=== PATIENT | male | born 1930 | race Asian ===

== ENCOUNTER 2017-08-25 17:11 | Inpatient (IN) | payer OTHER ==
--- NOTE | 2017-08-25 17:42 | EDPHY ---
H & P Time Seen by Provider: 08/25/17 17:40 HPI/ROS: CHIEF COMPLAINT: Shortness of breath HISTORY OF PRESENT ILLNESS: The patient is an anticoagulated 87 y/o male with hypertension and hyperlipidemia complaining of shortness of breath and left-sided chest pressure for 2 days. He returned from [place] 2 days ago. Onset of shortness of breath upon arrival to [place]. Gradually increasing shortness of breath since then. The shortness of breath is constant and aggravated with exertion. The chest pressure has been intermittent and is aggravated when he walks. This afternoon his symptoms worsened and he was short of breath at rest. He also noticed bilateral leg swelling. Denies fever, cough, receiving a flu shot this year, paresthesias or other pertinent symptoms. REVIEW OF SYSTEMS: Aside from elements discussed in the HPI, a comprehensive 10-point review of systems was reviewed and is negative. Past Medical/Surgical History: Hypertension, hypercholesteremia, atrial flutter, pace maker Social History: Son at bedside, , lives in [place], retired Smoking Status: Never smoked Physical Exam: General Appearance: Alert, O2Sat at triage: 89% Eyes: Pupils equal and round, no conjunctival pallor or injection ENT, Mouth: Mucous membranes moist Neck: Normal inspection Respiratory: Tachypnea, Lungs are clear to auscultation Cardiovascular: Regular rate and rhythm Gastrointestinal: Abdomen is soft and non-tender Neurological: A&O, nonfocal exam Skin: Warm and dry, no rash Extremities: Nontender, 1+ bilateral pitting edema Psychiatric: Mood and affect normal Constitutional: Initial Vital Signs Temperature (C) 36.7 C 08/25/17 17:17 Heart Rate 72 08/25/17 17:17 Respiratory Rate 22 H 08/25/17 17:17 Blood Pressure 193/78 H 08/25/17 17:17 O2 Sat (%) 94 08/25/17 17:17 O2 Delivery Mode Room Air O2 (L/minute) 2 Allergies/Adverse Reactions: No Known Allergies Allergy (Verified 08/25/17 17:16) Home Medications: Medication Instructions Recorded Atorvastatin Calcium [Lipitor 20 20 mg PO HS 11/30/14 mg (*)] Finasteride [Proscar 5 MG (*)] 5 mg PO HS 11/30/14 Apixaban [Eliquis] 2.5 mg PO BID 07/21/16 Zolpidem Tartrate [Ambien 10 mg] 10 mg PO HS 08/25/17 amLODIPine BESYLATE [Norvasc 2.5 2.5 mg PO DAILY 08/25/17 mg (*)] Furosemide [Lasix 20 MG (*)] 20 mg PO BID #60 tab 08/26/17 Medical Decision Making - Diagnostics EKG Interpretation: EKG interpreted by me reveals atrial fibrillation, normal axis, normal intervals , T-wave inversion inf-lateral leads, prolonged QT interval. Interpretation: atrial fibrillation Imaging Results: Chest x-ray independently reviewed by me revealed bilateral small pleural effusions Imaging: Discussed imaging studies w/ fisher scallop Radiologist, I viewed and interpreted images myself ED Course/Re-evaluation: The patient is an 87 y/o male presenting with shortness of breath and intermittent chest pressure. On exam he has diffuse breath sounds at his right base and 1+ bilateral pitting edema. At triage his O2Sats were at 89%, he was placed on room air and his O2Sats are now 98%. 174: EKG interpreted by me as atrial fibrillation with a controlled rate. Chest x-ray reveals mild pulmonary edema. Given hypoxia, significant shortness of breath, it's unclear whether his symptoms are secondary to CHF. I am concerned about pulmonary embolism, given recent prolonged travel, fairly unremarkable chest x-ray and hypoxia. For this reason, CT pulmonary angiogram ordered. 1808: Consulted with hospitalist service, Dr. Pappas accepts admission of this patient. 1814: Reassessed patient and discussed plan for admission. Patient and his son are comfortable with this plan. Patient was just up to the bathroom and he is quite dyspneic after getting back in bed, with oxygen saturation of 85% on room air. Oxygen was reapplied. CT pulmonary angiogram is negative for pulmonary embolism. Lasix 20 mg IV given for pulmonary edema. There is no evidence of acute coronary syndrome, pulmonary embolism, pneumonia. Differential Diagnosis: Differential diagnosis includes though it is not limited to pneumonia, pneumothorax, pulmonary embolism, aortic dissection, pericarditis, acute coronary syndrome. - Data Points Laboratory Results: Laboratory Results 08/25/17 17:40 08/25/17 17:40 Medications Given: Discontinued Medications Amlodipine Besylate (Norvasc) 2.5 mg PO DAILY [facility] Stop: 02/22/18 08:59 Last Admin: 08/26/17 09:37 Dose: 2.5 mg Apixaban (Eliquis) 2.5 mg PO BID [facility] Stop: 02/21/18 20:59 Last Admin: 08/26/17 09:37 Dose: 2.5 mg Atorvastatin Calcium (Lipitor) 20 mg PO HS [facility] Stop: 02/21/18 20:59 Last Admin: 08/25/17 21:47 Dose: 20 mg Finasteride (Proscar) 5 mg PO HS [facility] Stop: 02/21/18 20:59 Last Admin: 08/25/17 21:47 Dose: 5 mg Furosemide (Lasix Injection) 40 mg IVP EDNOW ONE Stop: 08/25/17 19:22 Last Admin: 08/25/17 19:33 Dose: 40 mg Furosemide (Lasix Injection) 40 mg IVP BID@0900,1500 [facility] Stop: 02/22/18 08:59 Last Admin: 08/26/17 16:01 Dose: 40 mg Influenza Virus Vaccine Quadrival (Fluarix Quad [id number]) 0.5 ml IM .ONCE ONE Stop: 08/26/17 14:21 Last Admin: 08/26/17 16:01 Dose: 0.5 ml Zolpidem Tartrate (Ambien) 10 mg PO HS [facility] Stop: 02/21/18 20:59 Last Admin: 08/25/17 21:47 Dose: 10 mg Departure - Departure Disposition: [facility] Inpatient Acute Clinical Impression: Hypoxia Pulmonary edema Qualifiers: Chronicity: acute Qualified Code(s): J81.0 - Acute pulmonary edema Condition: Fair Report Scribed for: Kaitlyn Taylor Report Scribed by: Amanda Pham Date of Report: 08/25/17 Time of Report: 17:41 Physician Review and Approval Statement: 08/25/17 17:42 Portions of this note were transcribed by a medical physiologist. I personally performed a history, physical exam, medical decision making, and confirmed accuracy of information the transcribed note.
--- NOTE | 2017-08-25 17:42 | EDPHY ---
H & P Time Seen by Provider: 08/25/17 17:40 HPI/ROS: CHIEF COMPLAINT: Shortness of breath HISTORY OF PRESENT ILLNESS: The patient is an anticoagulated 87 y/o male with hypertension and hyperlipidemia complaining of shortness of breath and left-sided chest pressure for 2 days. He returned from [place] 2 days ago. Onset of shortness of breath upon arrival to [place]. Gradually increasing shortness of breath since then. The shortness of breath is constant and aggravated with exertion. The chest pressure has been intermittent and is aggravated when he walks. This afternoon his symptoms worsened and he was short of breath at rest. He also noticed bilateral leg swelling. Denies fever, cough, receiving a flu shot this year, paresthesias or other pertinent symptoms. REVIEW OF SYSTEMS: Aside from elements discussed in the HPI, a comprehensive 10-point review of systems was reviewed and is negative. Past Medical/Surgical History: Hypertension, hypercholesteremia, atrial flutter, pace maker Social History: Son at bedside, , lives in [place], retired Smoking Status: Never smoked Physical Exam: General Appearance: Alert, O2Sat at triage: 89% Eyes: Pupils equal and round, no conjunctival pallor or injection ENT, Mouth: Mucous membranes moist Neck: Normal inspection Respiratory: Tachypnea, Lungs are clear to auscultation Cardiovascular: Regular rate and rhythm Gastrointestinal: Abdomen is soft and non-tender Neurological: A&O, nonfocal exam Skin: Warm and dry, no rash Extremities: Nontender, 1+ bilateral pitting edema Psychiatric: Mood and affect normal Constitutional: Initial Vital Signs Temperature (C) 36.7 C 08/25/17 17:17 Heart Rate 72 08/25/17 17:17 Respiratory Rate 22 H 08/25/17 17:17 Blood Pressure 193/78 H 08/25/17 17:17 O2 Sat (%) 94 08/25/17 17:17 O2 Delivery Mode Room Air O2 (L/minute) 2 Allergies/Adverse Reactions: No Known Allergies Allergy (Verified 08/25/17 17:16) Home Medications: Medication Instructions Recorded Atorvastatin Calcium [Lipitor 20 20 mg PO HS 11/30/14 mg (*)] Finasteride [Proscar 5 MG (*)] 5 mg PO HS 11/30/14 Apixaban [Eliquis] 2.5 mg PO BID 07/21/16 Zolpidem Tartrate [Ambien 10 mg] 10 mg PO HS 08/25/17 amLODIPine BESYLATE [Norvasc 2.5 2.5 mg PO DAILY 08/25/17 mg (*)] Furosemide [Lasix 20 MG (*)] 20 mg PO BID #60 tab 08/26/17 Medical Decision Making - Diagnostics EKG Interpretation: EKG interpreted by me reveals atrial fibrillation, normal axis, normal intervals , T-wave inversion inf-lateral leads, prolonged QT interval. Interpretation: atrial fibrillation Imaging Results: Chest x-ray independently reviewed by me revealed bilateral small pleural effusions Imaging: Discussed imaging studies w/ yard caller Radiologist, I viewed and interpreted images myself ED Course/Re-evaluation: The patient is an 87 y/o male presenting with shortness of breath and intermittent chest pressure. On exam he has diffuse breath sounds at his right base and 1+ bilateral pitting edema. At triage his O2Sats were at 89%, he was placed on room air and his O2Sats are now 98%. 174: EKG interpreted by me as atrial fibrillation with a controlled rate. Chest x-ray reveals mild pulmonary edema. Given hypoxia, significant shortness of breath, it's unclear whether his symptoms are secondary to CHF. I am concerned about pulmonary embolism, given recent prolonged travel, fairly unremarkable chest x-ray and hypoxia. For this reason, CT pulmonary angiogram ordered. 1808: Consulted with hospitalist service, Dr. Pappas accepts admission of this patient. 1814: Reassessed patient and discussed plan for admission. Patient and his son are comfortable with this plan. Patient was just up to the bathroom and he is quite dyspneic after getting back in bed, with oxygen saturation of 85% on room air. Oxygen was reapplied. CT pulmonary angiogram is negative for pulmonary embolism. Lasix 20 mg IV given for pulmonary edema. There is no evidence of acute coronary syndrome, pulmonary embolism, pneumonia. Differential Diagnosis: Differential diagnosis includes though it is not limited to pneumonia, pneumothorax, pulmonary embolism, aortic dissection, pericarditis, acute coronary syndrome. - Data Points Laboratory Results: Laboratory Results 08/25/17 17:40 08/25/17 17:40 Medications Given: Discontinued Medications Amlodipine Besylate (Norvasc) 2.5 mg PO DAILY [facility] Stop: 02/22/18 08:59 Last Admin: 08/26/17 09:37 Dose: 2.5 mg Apixaban (Eliquis) 2.5 mg PO BID [facility] Stop: 02/21/18 20:59 Last Admin: 08/26/17 09:37 Dose: 2.5 mg Atorvastatin Calcium (Lipitor) 20 mg PO HS [facility] Stop: 02/21/18 20:59 Last Admin: 08/25/17 21:47 Dose: 20 mg Finasteride (Proscar) 5 mg PO HS [facility] Stop: 02/21/18 20:59 Last Admin: 08/25/17 21:47 Dose: 5 mg Furosemide (Lasix Injection) 40 mg IVP EDNOW ONE Stop: 08/25/17 19:22 Last Admin: 08/25/17 19:33 Dose: 40 mg Furosemide (Lasix Injection) 40 mg IVP BID@0900,1500 [facility] Stop: 02/22/18 08:59 Last Admin: 08/26/17 16:01 Dose: 40 mg Influenza Virus Vaccine Quadrival (Fluarix Quad [id number]) 0.5 ml IM .ONCE ONE Stop: 08/26/17 14:21 Last Admin: 08/26/17 16:01 Dose: 0.5 ml Zolpidem Tartrate (Ambien) 10 mg PO HS [facility] Stop: 02/21/18 20:59 Last Admin: 08/25/17 21:47 Dose: 10 mg Departure - Departure Disposition: [facility] In[facility] Acute Clinical Impression: Hypoxia Pulmonary edema Qualifiers: Chronicity: acute Qualified Code(s): J81.0 - Acute pulmonary edema Condition: Fair Report Scribed for: Kaitlyn Taylor Report Scribed by: Amanda Pham Date of Report: 08/25/17 Time of Report: 17:41 Physician Review and Approval Statement: 08/25/17 17:42 Portions of this note were transcribed by a biomedical engineering aide. I personally performed a history, physical exam, medical decision making, and confirmed accuracy of information the transcribed note.
--- NOTE | 2017-08-25 17:42 | EDPHY ---
H & P Time Seen by Provider: 08/25/17 17:40 HPI/ROS: CHIEF COMPLAINT: Shortness of breath HISTORY OF PRESENT ILLNESS: The patient is an anticoagulated 87 y/o male with hypertension and hyperlipidemia complaining of shortness of breath and left-sided chest pressure for 2 days. He returned from [place] 2 days ago. Onset of shortness of breath upon arrival to [place]. Gradually increasing shortness of breath since then. The shortness of breath is constant and aggravated with exertion. The chest pressure has been intermittent and is aggravated when he walks. This afternoon his symptoms worsened and he was short of breath at rest. He also noticed bilateral leg swelling. Denies fever, cough, receiving a flu shot this year, paresthesias or other pertinent symptoms. REVIEW OF SYSTEMS: Aside from elements discussed in the HPI, a comprehensive 10-point review of systems was reviewed and is negative. Past Medical/Surgical History: Hypertension, hypercholesteremia, atrial flutter, pace maker Social History: Son at bedside, , lives in [place], retired Smoking Status: Never smoked Physical Exam: General Appearance: Alert, O2Sat at triage: 89% Eyes: Pupils equal and round, no conjunctival pallor or injection ENT, Mouth: Mucous membranes moist Neck: Normal inspection Respiratory: Tachypnea, Lungs are clear to auscultation Cardiovascular: Regular rate and rhythm Gastrointestinal: Abdomen is soft and non-tender Neurological: A&O, nonfocal exam Skin: Warm and dry, no rash Extremities: Nontender, 1+ bilateral pitting edema Psychiatric: Mood and affect normal Constitutional: Initial Vital Signs Temperature (C) 36.7 C 08/25/17 17:17 Heart Rate 72 08/25/17 17:17 Respiratory Rate 22 H 08/25/17 17:17 Blood Pressure 193/78 H 08/25/17 17:17 O2 Sat (%) 94 08/25/17 17:17 O2 Delivery Mode Room Air O2 (L/minute) 2 Allergies/Adverse Reactions: No Known Allergies Allergy (Verified 08/25/17 17:16) Home Medications: Medication Instructions Recorded Atorvastatin Calcium [Lipitor 20 20 mg PO HS 11/30/14 mg (*)] Finasteride [Proscar 5 MG (*)] 5 mg PO HS 11/30/14 Apixaban [Eliquis] 2.5 mg PO BID 07/21/16 Zolpidem Tartrate [Ambien 10 mg] 10 mg PO HS 08/25/17 amLODIPine BESYLATE [Norvasc 2.5 2.5 mg PO DAILY 08/25/17 mg (*)] Furosemide [Lasix 20 MG (*)] 20 mg PO BID #60 tab 08/26/17 Medical Decision Making - Diagnostics EKG Interpretation: EKG interpreted by me reveals atrial fibrillation, normal axis, normal intervals , T-wave inversion inf-lateral leads, prolonged QT interval. Interpretation: atrial fibrillation Imaging Results: Chest x-ray independently reviewed by me revealed bilateral small pleural effusions Imaging: Discussed imaging studies w/ call person Radiologist, I viewed and interpreted images myself ED Course/Re-evaluation: The patient is an 87 y/o male presenting with shortness of breath and intermittent chest pressure. On exam he has diffuse breath sounds at his right base and 1+ bilateral pitting edema. At triage his O2Sats were at 89%, he was placed on room air and his O2Sats are now 98%. 174: EKG interpreted by me as atrial fibrillation with a controlled rate. Chest x-ray reveals mild pulmonary edema. Given hypoxia, significant shortness of breath, it's unclear whether his symptoms are secondary to CHF. I am concerned about pulmonary embolism, given recent prolonged travel, fairly unremarkable chest x-ray and hypoxia. For this reason, CT pulmonary angiogram ordered. 1808: Consulted with hospitalist service, Dr. Pappas accepts admission of this patient. 1814: Reassessed patient and discussed plan for admission. Patient and his son are comfortable with this plan. Patient was just up to the bathroom and he is quite dyspneic after getting back in bed, with oxygen saturation of 85% on room air. Oxygen was reapplied. CT pulmonary angiogram is negative for pulmonary embolism. Lasix 20 mg IV given for pulmonary edema. There is no evidence of acute coronary syndrome, pulmonary embolism, pneumonia. Differential Diagnosis: Differential diagnosis includes though it is not limited to pneumonia, pneumothorax, pulmonary embolism, aortic dissection, pericarditis, acute coronary syndrome. - Data Points Laboratory Results: Laboratory Results 08/25/17 17:40 08/25/17 17:40 Medications Given: Discontinued Medications Amlodipine Besylate (Norvasc) 2.5 mg PO DAILY [facility] Stop: 02/22/18 08:59 Last Admin: 08/26/17 09:37 Dose: 2.5 mg Apixaban (Eliquis) 2.5 mg PO BID [facility] Stop: 02/21/18 20:59 Last Admin: 08/26/17 09:37 Dose: 2.5 mg Atorvastatin Calcium (Lipitor) 20 mg PO HS [facility] Stop: 02/21/18 20:59 Last Admin: 08/25/17 21:47 Dose: 20 mg Finasteride (Proscar) 5 mg PO HS [facility] Stop: 02/21/18 20:59 Last Admin: 08/25/17 21:47 Dose: 5 mg Furosemide (Lasix Injection) 40 mg IVP EDNOW ONE Stop: 08/25/17 19:22 Last Admin: 08/25/17 19:33 Dose: 40 mg Furosemide (Lasix Injection) 40 mg IVP BID@0900,1500 [facility] Stop: 02/22/18 08:59 Last Admin: 08/26/17 16:01 Dose: 40 mg Influenza Virus Vaccine Quadrival (Fluarix Quad [id number]) 0.5 ml IM .ONCE ONE Stop: 08/26/17 14:21 Last Admin: 08/26/17 16:01 Dose: 0.5 ml Zolpidem Tartrate (Ambien) 10 mg PO HS [facility] Stop: 02/21/18 20:59 Last Admin: 08/25/17 21:47 Dose: 10 mg Departure - Departure Disposition: [facility] In[facility] Acute Clinical Impression: Hypoxia Pulmonary edema Qualifiers: Chronicity: acute Qualified Code(s): J81.0 - Acute pulmonary edema Condition: Fair Report Scribed for: Kaitlyn Taylor Report Scribed by: Amanda Pham Date of Report: 08/25/17 Time of Report: 17:41 Physician Review and Approval Statement: 08/25/17 17:42 Portions of this note were transcribed by a medical laboratory scientist. I personally performed a history, physical exam, medical decision making, and confirmed accuracy of information the transcribed note.
--- NOTE | 2017-08-25 17:50 | CPEKG ---
Heart Rate: 66 RR Interval: 909 QRSD Interval: 84 QT Interval: 480 QTC Interval: 503 QRS [place]: 125 T Wave [place]: 255 EKG Severity - ABNORMAL ECG - EKG Impression: ATRIAL FIBRILLATION EKG Impression: PVC EKG Impression: RIGHT AXIS DEVIATION EKG Impression: ABNORMAL T, CONSIDER ISCHEMIA, DIFFUSE LEADS EKG Impression: PROLONGED QT INTERVAL Electronically Signed By: Kaitlyn Taylor 25-Aug-2017 21:31:16
[2017-08-25 18:06] LABS: PLATELET COUNT 151 10^3/uL (150-400)
[2017-08-25] MEDS ORDERED: IOPAMIDOL (ISOVUE 370) 100 ML BTL IV ONE (18:29)
[2017-08-25] MEDS ORDERED: ONDANSETRON DISINTEGRATING 4 MG TAB PO PRN (19:11)
[2017-08-25] MEDS ORDERED: ONDANSETRON 4 MG/2 ML VIAL IVP PRN (19:11)
[2017-08-25] MEDS ORDERED: ACETAMINOPHEN 325 MG TAB PO PRN (19:11)
[2017-08-25] MEDS ORDERED: FUROSEMIDE 40 MG/4 ML VIAL IVP ONE (19:21)
--- NOTE | 2017-08-25 20:47 | GHP ---
[f rep st] HISTORY AND PHYSICAL DATE OF ADMISSION: 08/25/2017 CHIEF COMPLAINT: Shortness of breath. State Wildlife Officer: Dr. Mason HISTORY OF PRESENT ILLNESS: History obtained with a [place] phone park interpreter and son. A 87-year-old male with a history of ROSITA, noncompliant with CPAP, severe tricuspid regurgitation, presenting with shortness of breath. Had sudden onset of dyspnea a couple days ago after returning from [place] a few days ago. It is worse with walking. No chest pain. c/o leg swelling for 3 months and fullness in abdomen. Denies pillow orthopnea. He cannot confirm PND; says always has a hard time sleeping and wakes up often. No fevers, chills or sweats. No nausea, vomiting or diarrhea. REVIEW OF SYSTEMS: I completed a 10-point review of systems, negative except as noted in HPI. PAST MEDICAL HISTORY: 1. Severe TR on echocardiogram in 2014 with normal LV of 65%. RV was mildly dilated. 2. Atrial flutter. 3. Bradycardia, status post pacemaker in 2015. 4. ROSITA, noncompliant with CPAP. 5. BPH. 6. Depression. 7. Diabetes, not on medications. 8. Elevated PSA. 9. Hyperlipidemia, hypertension. 10. Right adrenal adenoma. 11. Insomnia. PAST SURGICAL HISTORY: 1. Pacemaker. 2. Adrenal gland resection. SOCIAL HISTORY: Lives with his son in [place]. No tobacco, alcohol or illicits. Does not use a cane or walker. Does not fall. ALLERGIES: No known drug allergies. HOME MEDICATIONS: Norvasc 2.5 mg daily, Ambien 10 mg q.h.s., Eliquis 2.5 mg b.i.d., finasteride 5 mg q.h.s., atorvastatin 20 mg q.h.s. PHYSICAL EXAMINATION: VITAL SIGNS: Temperature 36.7, blood pressure 193/78, heart rate 72, respirations 22, 94% on room air. GENERAL: Elderly male lying in bed. No acute distress. HEENT: PERRLA. EOMI. Oropharynx clear. CV: Regular rate and rhythm. No murmurs, gallops or rubs. +2 lower extremity edema to the knees. LUNGS: Decreased breath sounds at both bases, right greater than left. ABDOMEN: Distended, firm but no tenderness to palpation. Positive bowel sounds. : No Serna. MUSCULOCUTANEOUS/MUSCULOSKELETAL: 5/5 upper and lower extremity strength. NEUROLOGIC: 2-12 intact. PSYCH: Alert and oriented x3. DIAGNOSTIC STUDIES: Chest x-ray was personally reviewed by me. Bilateral pleural effusions, right greater than left. No opacity. Pacemaker lead in right ventricle. CTA: No PE. Borderline CHF with small amount of right and left pleural effusions. Minimal interstitial lung disease. EKG was personally reviewed by me. AFib. QTc 503. ST flattening anterior leads, T-wave inversions in II, III and aVF, seen on prior EKG. ASSESSMENT AND PLAN: 1. Shortness of breath: effusions on imaging. Suspect right heart failure with untreated ROSITA. No e/o infection, no PE. Check echo in morning. IV diuresis, I/O , fluid restriction, loqw-Na diet. 2. Obstructive sleep apnea. CPAP. Diuresis as above. 3. Insomnia. Continue Ambien. 4. Hypertension. Amlodipine. 5. Benign prostatic hypertrophy. Proscar. 6. Hyperlipidemia. Statin. 7. History of atrial flutter. Continue Eliquis. 8. h/o bradycardia: pacemakeer 9. Diet: Low sodium. 2 L fluid restriction. 10. Deep venous thrombosis prophylaxis, on Eliquis. DISPOSITION: Patient warrants observation admission with pleural effusion requiring IV Lasix. He does not want to stay in hospital; says he will leave tomorrow though I advised him to stay for diuresis. /[id number]/MODL MTDD
[2017-08-25] MEDS ORDERED: ATORVASTATIN CALCIUM 20 MG TAB PO SCH (21:00)
[2017-08-25] MEDS ORDERED: FINASTERIDE 5 MG TAB PO SCH (21:00)
[2017-08-25] MEDS ORDERED: ZOLPIDEM TARTRATE 5 MG TAB PO SCH (21:00)
[2017-08-25] MEDS: APIXABAN 2.5 MG TAB PO SCH (21:47)
[2017-08-26] MEDS: APIXABAN 2.5 MG TAB PO SCH (09:37)
[2017-08-26] MEDS: FUROSEMIDE 40 MG/4 ML VIAL IVP SCH ×2 (09:37→16:01)
--- NOTE | 2017-08-26 11:38 | PDMN ---
Medical Necessity Medical necessity: Pt meets IP criteria per MD; est los >2 mn for evel/tx of pleural effusion & suspected R sided heart failure w/untreated ROSITA; admit for IV diuresis; hx aflutter, htn, diabetes; per H&P & order 08/25/17
[2017-08-26 12:19] VITALS: BP 149/59; PULSE 61; RESP 20; TEMP 98.2; O2SAT 97
[2017-08-26] MEDS ORDERED: FLU VACC QS 2017-18 (3YR+)/PF 0.5 ML SYR (FLUARIX QUAD) IM ONE (14:20)
--- NOTE | 2017-08-26 15:07 | PDHOMEO2F ---
Home Oxygen Face to Face Home Orders: I certify that a physician or a nurse practitioner or physician's family and divorce legal assistant has had a [id number] encounter with this patient on the date of this order due to the diagnosis listed, which relates to the primary reason the patient requires home oxygen. Alternative treatments have been tried, or considered, and deemed ineffective. It is anticipated that supplemental oxygen will result in improvement with treatment. Home oxygen qualifying diagnosis: diastolic heart failure SpO2 on room air (%): 82% on RA ambulating Frequency of home oxygen needed: continuous Home oxygen liters per minute: 2L Home oxygen delivery device: nasal cannula Concentrator: Yes E-tanks for mobility and back up: Yes If ordering portable O2, is the patient mobile in the home?: Yes I certify that, based on these findings, the home oxygen is medically necessary for this patient for the following length of time. Length of time home oxygen needed: 1 month
--- NOTE | 2017-08-26 15:07 | PDHOMEO2F ---
Home Oxygen Face to Face Home Orders: I certify that a physician or a nurse practitioner or physician's child development assistant has had a [id number] encounter with this patient on the date of this order due to the diagnosis listed, which relates to the primary reason the patient requires home oxygen. Alternative treatments have been tried, or considered, and deemed ineffective. It is anticipated that supplemental oxygen will result in improvement with treatment. Home oxygen qualifying diagnosis: diastolic heart failure SpO2 on room air (%): 82% on RA ambulating Frequency of home oxygen needed: continuous Home oxygen liters per minute: 2L Home oxygen delivery device: nasal cannula Concentrator: Yes E-tanks for mobility and back up: Yes If ordering portable O2, is the patient mobile in the home?: Yes I certify that, based on these findings, the home oxygen is medically necessary for this patient for the following length of time. Length of time home oxygen needed: 1 month
--- NOTE | 2017-08-26 15:07 | PDHOMEO2F ---
Home Oxygen Face to Face Home Orders: I certify that a physician or a nurse practitioner or physician's assistant statistician has had a [id number] encounter with this patient on the date of this order due to the diagnosis listed, which relates to the primary reason the patient requires home oxygen. Alternative treatments have been tried, or considered, and deemed ineffective. It is anticipated that supplemental oxygen will result in improvement with treatment. Home oxygen qualifying diagnosis: diastolic heart failure SpO2 on room air (%): 82% on RA ambulating Frequency of home oxygen needed: continuous Home oxygen liters per minute: 2L Home oxygen delivery device: nasal cannula Concentrator: Yes E-tanks for mobility and back up: Yes If ordering portable O2, is the patient mobile in the home?: Yes I certify that, based on these findings, the home oxygen is medically necessary for this patient for the following length of time. Length of time home oxygen needed: 1 month
--- NOTE | 2017-08-26 16:31 | ECHO ---
[email or web address] [address] [address] Main: [phone] Fax: Transthoracic Echocardiogram Name: LV SALAZAR MR#: [id number] Study Date: 08/26/2017 Study Time: 08:02 AM Date of : 1930 Age: 87 year(s) Height: 165.1 cm (65 in.) Weight: 72.58 kg (160 lb.) BSA: 1.8 m2 Gender: Male Examination: Echo Indication: Acute Dyspnea, Pacemaker Image Quality: Contrast: Requested by: Lisset Pappas BP: 171 mmHg/85 mmHg Heart Rate: Rhythm: Pacemaker rhythm Indication: Acute Dyspnea, Pacemaker Procedure Staff Plan Rep: Caesar Hansen Reading Physician: Kayode Frederick Requesting Provider: Conclusions: Normal size left ventricle. Global hypercontractility of the left ventricle. EF is 73 %. Severely dilated right ventricle. The left atrium is moderately dilated. The right atrium is mildly to moderately dilated. The mitral valve is normal in appearance and function. The aortic valve is tri-leaflet. Mild aortic valve regurgitation is present. The pulmonary artery pressure is severely increased. The pulmonary artery pressure estimate is 66 mmHg. When compared to the 11/30/14 study. The pulmonary artery pressure has increased from 35 to 66 mmHg. Measurements: Chambers Valvular Assessment AV/MV Valvular Assessment TV/PV Normal Normal Normal Name Value Range Name Value Range Name Value Range Ao Lara (MM): 2.7 cm (2.2 cm-3.7 AV Vmax: 1.66 m/s (1 m/s-1.7 TR Vmax: 3.74 mm/s ( - ) cm) m/s) TR PGmax: 56 mmHg ( - ) IVSd (2D): 0.9 cm (0.6 cm-1.1 AV maxP mmHg ( - ) syst. PAP: 66 mmHg ( - ) cm) LVOT Vmax: 1.06 m/s (0.7 m/s-1.1 PV Vmax: 1.11 m/s (0.6 m/s-0.9 LVDd (2D): 4.9 cm (4.2 cm-5.9 m/s) m/s) cm) MV E Vmax: 1.16 m/s ( - ) PV PGmax: 5 mmHg ( - ) LVDs (2D): 2.8 cm (2.1 cm-4 cm) LVPWd (2D): 1.0 cm (0.6 cm-1 cm) LVEF (2D): 73 (>=54 %) Patient: LV SALAZAR Study Date: 08/26/2017 Page 1 of 2 08:02 AM RVDd(2D): 3.5 cm (1.9 cm-3.8 cmmm) Continued Measurements: Chambers Valvular Assessment AV/MV Valvular Assessment TV/PV Name Value Name Value Name Value LADs Lon.6 cm MV E/E' Septal: 12.90 CVP (est.): 10 mmHg LA Area: 27.2 cm2 MV E/E' Lateral: 14.30 Findings: Left Ventricle: Normal size left ventricle. No LV hypertrophy. Global hypercontractility of the left ventricle. EF is 73 %. No regional wall motion abnormality. Diastolic dysfunction is present. . Right Ventricle: Severely dilated right ventricle. Normal RV function. There is a pacemaker lead noted in the right ventricle. Left Atrium: The left atrium is moderately dilated. Right Atrium: The right atrium is mildly to moderately dilated. Mitral Valve: The mitral valve is normal in appearance and function. Trivial to mild mitral regurgitation. Aortic Valve: The aortic valve is normal in appearance and function. The aortic valve is tri-leaflet. Mild aortic valve regurgitation is present. Tricuspid Valve: The tricuspid valve appears normal. Severe tricuspid regurgitation is present. The pulmonary artery pressure is severely increased. Pulmonic Valve: The pulmonic valve is normal in appearance and function. Mild pulmonic valve regurgitation is noted. Aorta: The aorta is normal. Pericardium: No pericardial effusion. (No Signature Object) Patient: LV SALAZAR Study Date: 08/26/2017 Page 2 of 2 08:02 AM [id number]
--- NOTE | 2017-08-26 16:31 | ECHO ---
[email or web address] [address] [address] Main: [phone] Fax: Transthoracic Echocardiogram Name: LV SALAZAR MR#: [id number] Study Date: 08/26/2017 Study Time: 08:02 AM Date of : 1930 Age: 87 year(s) Height: 165.1 cm (65 in.) Weight: 72.58 kg (160 lb.) BSA: 1.8 m2 Gender: Male Examination: Echo Indication: Acute Dyspnea, Pacemaker Image Quality: Contrast: Requested by: Lisset Pappas BP: 171 mmHg/85 mmHg Heart Rate: Rhythm: Pacemaker rhythm Indication: Acute Dyspnea, Pacemaker Procedure Staff Ring Making Machine Operator: Caesar Hansen Reading Physician: Kayode Frederick Requesting Provider: Conclusions: Normal size left ventricle. Global hypercontractility of the left ventricle. EF is 73 %. Severely dilated right ventricle. The left atrium is moderately dilated. The right atrium is mildly to moderately dilated. The mitral valve is normal in appearance and function. The aortic valve is tri-leaflet. Mild aortic valve regurgitation is present. The pulmonary artery pressure is severely increased. The pulmonary artery pressure estimate is 66 mmHg. When compared to the 11/30/14 study. The pulmonary artery pressure has increased from 35 to 66 mmHg. Measurements: Chambers Valvular Assessment AV/MV Valvular Assessment TV/PV Normal Normal Normal Name Value Range Name Value Range Name Value Range Ao Lara (MM): 2.7 cm (2.2 cm-3.7 AV Vmax: 1.66 m/s (1 m/s-1.7 TR Vmax: 3.74 mm/s ( - ) cm) m/s) TR PGmax: 56 mmHg ( - ) IVSd (2D): 0.9 cm (0.6 cm-1.1 AV maxP mmHg ( - ) syst. PAP: 66 mmHg ( - ) cm) LVOT Vmax: 1.06 m/s (0.7 m/s-1.1 PV Vmax: 1.11 m/s (0.6 m/s-0.9 LVDd (2D): 4.9 cm (4.2 cm-5.9 m/s) m/s) cm) MV E Vmax: 1.16 m/s ( - ) PV PGmax: 5 mmHg ( - ) LVDs (2D): 2.8 cm (2.1 cm-4 cm) LVPWd (2D): 1.0 cm (0.6 cm-1 cm) LVEF (2D): 73 (>=54 %) Patient: LV SALAZAR Study Date: 08/26/2017 Page 1 of 2 08:02 AM RVDd(2D): 3.5 cm (1.9 cm-3.8 cmmm) Continued Measurements: Chambers Valvular Assessment AV/MV Valvular Assessment TV/PV Name Value Name Value Name Value LADs Lon.6 cm MV E/E' Septal: 12.90 CVP (est.): 10 mmHg LA Area: 27.2 cm2 MV E/E' Lateral: 14.30 Findings: Left Ventricle: Normal size left ventricle. No LV hypertrophy. Global hypercontractility of the left ventricle. EF is 73 %. No regional wall motion abnormality. Diastolic dysfunction is present. . Right Ventricle: Severely dilated right ventricle. Normal RV function. There is a pacemaker lead noted in the right ventricle. Left Atrium: The left atrium is moderately dilated. Right Atrium: The right atrium is mildly to moderately dilated. Mitral Valve: The mitral valve is normal in appearance and function. Trivial to mild mitral regurgitation. Aortic Valve: The aortic valve is normal in appearance and function. The aortic valve is tri-leaflet. Mild aortic valve regurgitation is present. Tricuspid Valve: The tricuspid valve appears normal. Severe tricuspid regurgitation is present. The pulmonary artery pressure is severely increased. Pulmonic Valve: The pulmonic valve is normal in appearance and function. Mild pulmonic valve regurgitation is noted. Aorta: The aorta is normal. Pericardium: No pericardial effusion. (No Signature Object) Patient: LV SALAZAR Study Date: 08/26/2017 Page 2 of 2 08:02 AM [id number]
--- NOTE | 2017-08-26 16:31 | ECHO ---
[email or web address] [address] [address] Main: [phone] Fax: Transthoracic Echocardiogram Name: LV SALAZAR MR#: [id number] Study Date: 08/26/2017 Study Time: 08:02 AM Date of : 1930 Age: 87 year(s) Height: 165.1 cm (65 in.) Weight: 72.58 kg (160 lb.) BSA: 1.8 m2 Gender: Male Examination: Echo Indication: Acute Dyspnea, Pacemaker Image Quality: Contrast: Requested by: Lisset Pappas BP: 171 mmHg/85 mmHg Heart Rate: Rhythm: Pacemaker rhythm Indication: Acute Dyspnea, Pacemaker Procedure Staff Ep Specialist: Caesar Hansen Reading Physician: Kayode Frederick Requesting Provider: Conclusions: Normal size left ventricle. Global hypercontractility of the left ventricle. EF is 73 %. Severely dilated right ventricle. The left atrium is moderately dilated. The right atrium is mildly to moderately dilated. The mitral valve is normal in appearance and function. The aortic valve is tri-leaflet. Mild aortic valve regurgitation is present. The pulmonary artery pressure is severely increased. The pulmonary artery pressure estimate is 66 mmHg. When compared to the 11/30/14 study. The pulmonary artery pressure has increased from 35 to 66 mmHg. Measurements: Chambers Valvular Assessment AV/MV Valvular Assessment TV/PV Normal Normal Normal Name Value Range Name Value Range Name Value Range Ao Lara (MM): 2.7 cm (2.2 cm-3.7 AV Vmax: 1.66 m/s (1 m/s-1.7 TR Vmax: 3.74 mm/s ( - ) cm) m/s) TR PGmax: 56 mmHg ( - ) IVSd (2D): 0.9 cm (0.6 cm-1.1 AV maxP mmHg ( - ) syst. PAP: 66 mmHg ( - ) cm) LVOT Vmax: 1.06 m/s (0.7 m/s-1.1 PV Vmax: 1.11 m/s (0.6 m/s-0.9 LVDd (2D): 4.9 cm (4.2 cm-5.9 m/s) m/s) cm) MV E Vmax: 1.16 m/s ( - ) PV PGmax: 5 mmHg ( - ) LVDs (2D): 2.8 cm (2.1 cm-4 cm) LVPWd (2D): 1.0 cm (0.6 cm-1 cm) LVEF (2D): 73 (>=54 %) Patient: LV SALAZAR Study Date: 08/26/2017 Page 1 of 2 08:02 AM RVDd(2D): 3.5 cm (1.9 cm-3.8 cmmm) Continued Measurements: Chambers Valvular Assessment AV/MV Valvular Assessment TV/PV Name Value Name Value Name Value LADs Lon.6 cm MV E/E' Septal: 12.90 CVP (est.): 10 mmHg LA Area: 27.2 cm2 MV E/E' Lateral: 14.30 Findings: Left Ventricle: Normal size left ventricle. No LV hypertrophy. Global hypercontractility of the left ventricle. EF is 73 %. No regional wall motion abnormality. Diastolic dysfunction is present. . Right Ventricle: Severely dilated right ventricle. Normal RV function. There is a pacemaker lead noted in the right ventricle. Left Atrium: The left atrium is moderately dilated. Right Atrium: The right atrium is mildly to moderately dilated. Mitral Valve: The mitral valve is normal in appearance and function. Trivial to mild mitral regurgitation. Aortic Valve: The aortic valve is normal in appearance and function. The aortic valve is tri-leaflet. Mild aortic valve regurgitation is present. Tricuspid Valve: The tricuspid valve appears normal. Severe tricuspid regurgitation is present. The pulmonary artery pressure is severely increased. Pulmonic Valve: The pulmonic valve is normal in appearance and function. Mild pulmonic valve regurgitation is noted. Aorta: The aorta is normal. Pericardium: No pericardial effusion. (No Signature Object) Patient: LV SALAZAR Study Date: 08/26/2017 Page 2 of 2 08:02 AM [id number]
--- NOTE | 2017-08-26 17:16 | GDS ---
[f rep st] DISCHARGE SUMMARY DISCHARGE DIAGNOSES: 1. Acute diastolic heart failure. 2. Acute hypoxic respiratory failure presumed secondary to diastolic heart failure. 3. Severe tricuspid regurgitation, known, chronic. 4. History of atrial flutter. 5. Obstructive sleep apnea, noncompliant with CPAP. 6. Benign prostatic hypertrophy. 7. Depression. 8. Diabetes. 9. Hyperlipidemia. HISTORY OF PRESENT ILLNESS: An 87-year-old male, who presents with complaints of shortness of breath . For details of the patient's initial presentation, please see the history and physical dated 08/26. CONSULTATIVE SERVICES: None. PROCEDURES: On 08/25/2017, patient had a CTA of the chest that showed no PE, borderline CHF with ass ociated small to moderate right and left effusions, and minimal interstitial lung disease unchanged f rom previous studies. HOSPITAL COURSE: Acute hypoxic respiratory failure. Patient looked to have pulmonary edema and effu sions consistent with diastolic heart failure. He was initiated on IV Lasix and had good therapeutic response. On the day of disposition, echocardiogram had been performed, but not interpreted. He wa s saturating 88% to 90% on room air at rest, and desaturates still to the low 80s on ambulation. We have discussed the treatment of diastolic heart failure with his outpatient director intelligence analysis programs, Dr. Mac. We are continuing his home cardiac medications with the addition of Lasix [address] Maria Guadalupe Mac will follow the final results of the echo which are pending at this time of discharge, and sabine l titrate medications as appropriate in the clinic in the next week or two. MEDICATIONS AT THE TIME OF TRANSFER: Please reference med rec printed on 08/26/2017. PENDING STUDIES: Transthoracic echocardiogram to be interpreted and followed up on by Dr. Mac. I spent greater than 30 minutes in the planning and coordination of this discharge. /[id number]/MODL
--- NOTE | 2017-08-27 16:51 | ASDISCHSUM ---
Discharge Information Plan Status:Home with No Needs Medically Cleared to Leave:08/25/2017 Discharge Date:08/26/2017 05:49 PM CM D/C Disposition: ADT D/C Disposition:Home, Routine, Self-Care Projected Discharge Date:08/26/2017 12:00 AM Transportation at D/C: Discharge Delay Reason: Follow-Up Date:08/26/2017 12:00 AM Discharge Slot: Final Diagnosis: Placement Information Patient Contact Information Contact Name:FRANKLIN Relationship:Son Address:[address] [place], [place] [address] City:[place] Alternate Phone: [facility]/Zip Code:[place] [address] Email: Financial Information Financial Class: Primary Plan Desc:MEDICARE INPATIENT Primary Plan Number:[id number] Secondary Plan Desc:[employer] Secondary Plan Number:[id number] Assessment Information Intervention Information
--- NOTE | 2017-08-27 16:51 | ASDISCHSUM ---
Discharge Information Plan Status:Home with No Needs Medically Cleared to Leave:08/25/2017 Discharge Date:08/26/2017 05:49 PM CM D/C Disposition: ADT D/C Disposition:Home, Routine, Self-Care Projected Discharge Date:08/26/2017 12:00 AM Transportation at D/C: Discharge Delay Reason: Follow-Up Date:08/26/2017 12:00 AM Discharge Slot: Final Diagnosis: Placement Information Patient Contact Information Contact Name:FRANKLIN Relationship:Son Address:[address] [place], [place] [address] City:[place] Alternate Phone: [facility]/Zip Code:[place] [address] Email: Financial Information Financial Class: Primary Plan Desc:MEDICARE INPATIENT Primary Plan Number:[id number] Secondary Plan Desc:[employer] Secondary Plan Number:[id number] Assessment Information Intervention Information
--- NOTE | 2017-08-27 16:51 | ASDISCHSUM ---
Discharge Information Plan Status:Home with No Needs Medically Cleared to Leave:08/25/2017 Discharge Date:08/26/2017 05:49 PM CM D/C Disposition: ADT D/C Disposition:Home, Routine, Self-Care Projected Discharge Date:08/26/2017 12:00 AM Transportation at D/C: Discharge Delay Reason: Follow-Up Date:08/26/2017 12:00 AM Discharge Slot: Final Diagnosis: Placement Information Patient Contact Information Contact Name:FRANKLIN Relationship:Son Address:[address] [place], [place] [address] City:[place] Alternate Phone: [facility]/Zip Code:[place] [address] Email: Financial Information Financial Class: Primary Plan Desc:MEDICARE INPATIENT Primary Plan Number:[id number] Secondary Plan Desc:[employer] Secondary Plan Number:[id number] Assessment Information Intervention Information
== END 2017-08-26 17:49 | disposition home or self-care (01) | DRG 291 ==
LOC: F3E 20:15 → F2W 20:51
PROVIDERS: ADMIT Internal Medicine; ATTEND Internal Medicine
DX: I50.31 Acute diastolic (congestive) heart failure (principal); J96.01 Acute respiratory failure with hypoxia; G47.33 Obstructive sleep apnea (adult) (pediatric); I07.1 Rheumatic tricuspid insufficiency; N40.0 Benign prostatic hyperplasia without lower urinary tract symptoms; F32.9 Major depressive disorder, single episode, unspecified; E11.9 Type 2 diabetes mellitus without complications; E78.5 Hyperlipidemia, unspecified; G47.00 Insomnia, unspecified; Z95.0 Presence of cardiac pacemaker; Z23 Encounter for immunization; Z79.01 Long term (current) use of anticoagulants
CPT/HCPCS: G0008; J1940; Q9967

== ENCOUNTER → 2017-12-22 | Outpatient (CLI) | payer OTHER | LOC: FIMAGING 09:08 | PROVIDERS: ATTEND Family Medicine | DX: E04.1 Nontoxic single thyroid nodule (principal); E11.9 Type 2 diabetes mellitus without complications; I25.10 Atherosclerotic heart disease of native coronary artery without angina pectoris; R94.6 Abnormal results of thyroid function studies ==

== ENCOUNTER 2018-08-13 22:20 | Emergency (ER) | payer OTHER ==
[2018-08-13] MEDS ORDERED: OXYMETAZOLINE 30 ML NASAL SPRAY EACHNARE ONE (22:33)
[2018-08-13] MEDS ORDERED: TRANEXAMIC ACID 1,000 MG/10 ML VIAL TP ONE (22:33)
--- NOTE | 2018-08-13 22:52 | EDPHY ---
H & P Stated Complaint: L nose bleed half hour ago-on Eliquis for AFlutter. Time Seen by Provider: 08/13/18 22:33 HPI/ROS: HPI The patient presents with epistaxis which began about 1 hr prior to arrival in the emergency department. The patient states he was picking his left naris and then noticed blood. This continued and was dripping for several minutes. He was unable to control it with pressure. He is on Eliquis for atrial flutter. He has no prior history of nose bleed.. REVIEW OF SYSTEMS 10 systems were reviewed and negative with the exception of the elements mentioned in the history of present illness. PMHx: Hypertension, pacemaker in place, atrial flutter on Eliquis, BPH Soc Hx: Here with his son PHYSICAL General Appearance: Alert, no distress Eyes: Pupils equal and round no pallor or injection ENT, Mouth: Left naris with small amount of active bleeding, no obvious source of bleeding identified, Mucous membranes moist Respiratory: Breathing comfortably Neurological: A&O, moves all extremities Skin: Warm and dry, no rashes Musculoskeletal: Neck is supple non tender Extremities: symmetrical, full range of motion Psychiatric: Patient is oriented X 3, there is no agitation Source: Patient Exam Limitations: No limitations - Personal History Current Tetanus/Diphtheria Vaccine: Unsure Current Tetanus Diphtheria and Acellular Pertussis (TDAP): Unsure Tetanus Vaccine Date: < 10 years - Medical/Surgical History Hx Asthma: No Hx Chronic Respiratory Disease: No Hx Diabetes: No Hx Cardiac Disease: Yes Hx Renal Disease: No Hx Cirrhosis: No Hx Alcoholism: No Hx HIV/AIDS: No Hx Splenectomy or Spleen Trauma: No Other PMH: HTN, Cholesterol, BPH, Pacemaker, AFlutter-on Eliquis. - Social History Smoking Status: Never smoked Constitutional: Initial Vital Signs Temperature (C) 36.6 C 08/13/18 22:25 Heart Rate 55 L 08/13/18 22:25 Respiratory Rate 16 08/13/18 22:25 Blood Pressure 190/73 H 08/13/18 22:25 O2 Sat (%) 97 08/13/18 22:25 O2 Delivery Mode Room Air Allergies/Adverse Reactions: No Known Allergies Allergy (Verified 08/13/18 22:29) Home Medications: Medication Instructions Recorded Atorvastatin Calcium [Lipitor 20 20 mg PO HS 11/30/15 mg (*)] Finasteride [Proscar 5 MG (*)] 5 mg PO HS 11/30/14 Apixaban [Eliquis] 2.5 mg PO BID 07/21/16 Zolpidem Tartrate [Ambien 10 mg] 10 mg PO HS 08/25/17 amLODIPine BESYLATE [Norvasc 2.5 2.5 mg PO DAILY 08/25/17 mg (*)] Medical Decision Making Procedures: NOSE BLEED Procedure: Epistaxis control. Indication: nosebleed not controlled by direct pressure. Risks, benefits, alternatives discussed with patient and consent obtained. The left nares was anesthetized with lidocaine with epinephrine. The anterior epistaxis was identified. The patient was treated with packing with T ex a soaked cotton ball. Following the procedure the patient was re-examined and the bleeding was well controlled. The patient tolerated the procedure well. The procedure was performed by myself. Differential Diagnosis: 88-year-old male with atrial flutter on Eliquis presents with epistaxis from his left naris. This began after picking his nose. He has improved bleeding with nasal clamp in place though ongoing small ooze. With T ex a soaked cotton ball we were able to control the bleeding. Patient did not want to undergo nasal packing at this time. I have given him discharge instructions to use Afrin and nasal clamps as needed. He should also use Vaseline and humidifier at night if possible. Appears to be anterior epistaxis, though I have considered posterior epistaxis as well. - Data Points Medications Given: Discontinued Medications Oxymetazoline HCl (Afrin Nasal [place]) 2 sprays EACHNARE EDNOW ONE Stop: 08/13/18 22:34 Last Admin: 08/13/18 23:06 Dose: 2 puffs Tranexamic Acid (Cyklokapron) 500 mg TP EDNOW ONE Stop: 08/13/18 22:34 Last Admin: 08/13/18 23:06 Dose: 500 mg Departure - Departure Disposition: Home, Routine, Self-Care Clinical Impression: Acute anterior epistaxis Condition: Good Instructions: Nosebleed (ED) Referrals: Montserrat Jeffery MD [Primary Care Provider] - As per Instructions Peggy Acosta MD [Medical Doctor] - As per Instructions
[2018-08-13 23:52] VITALS: BP 154/76
== END 2018-08-13 23:49 | disposition home or self-care (01) ==
PROC: 2Y41X5Z Packing of Nasal Region using Packing Material (ICD-10-PCS; principal; 2018-08-13)
DX: R04.0 Epistaxis (principal); I10 Essential (primary) hypertension; Z95.0 Presence of cardiac pacemaker